=== PATIENT | female | born 1980 | race Two or more races ===

== ENCOUNTER 2018-06-10 18:36 | Emergency (ER) | payer MEDICAID ==
[~2018-06-10] VITALS: Ht 167.6 cm; Wt 86.2 kg
[~2018-06-10 18:36] MED LIST: ALBUAER3 IN; ALPR0.25 PO; BECL0.07 IN; BUSP5TAB51 PO; MON10T PO; NYS5LQ PO; Pantoprazole Sodium Sesquihydr PO
[2018-06-10 18:58] VITALS: BP 147/50
== END 2018-06-10 19:35 | disposition left against medical advice (07) ==
LOC: ER 18:36
DX: R06.02 Shortness of breath (principal); Z53.21 Procedure and treatment not carried out due to patient leaving prior to being seen by health care provider
CPT/HCPCS: 71045

== ENCOUNTER 2020-10-24 19:42 | Emergency (ER) | payer MEDICAID ==
[~2020-10-24] VITALS: Ht 167.6 cm; Wt 90.7 kg
[~2020-10-24 19:42] MED LIST changes: +FAMO-12 PO
[2020-10-24 22:08] LABS: Basophils # (auto) 0 10 ^3/uL (0-0.2); Basophils % (auto) 0.4 % (0.0-2.0); Eosinophils # (auto) 0.5 10 ^3/uL (0-0.8); Eosinophils % (auto) 5.3 % (0.0-7.0); Hematocrit 33.9 % (36.0-46.0); Hemoglobin 11.4 g/dL (12.2-16.2); Lymphocytes # (auto) 1.9 10 ^3/uL (0.4-5.4); Lymphocytes % (auto) 19.4 % (10.0-50.0); Mean Corpuscular Hemoglobin 30.2 pg (28.0-32.0); Mean Corpuscular Hgb Conc. 33.8 g/dL (32.0-36.0); Mean Corpuscular Volume 89.3 fL (80.0-100.0); Monocytes # (auto) 0.6 10 ^3/uL (0-1.3); Monocytes % (auto) 6.5 % (0.0-12.0); Neutrophils # (auto) 6.7 10 ^3/uL (1.6-8.6); Neutrophils % (auto) 68.4 % (37.0-80.0); Nucleated Red Blood Cells % 0.1 %; Platelet Count (auto) 308 10^3/uL (140-450); Red Blood Cells 3.79 10^6/uL (4.0-5.20); Red Cell Distribution Width 14.9 % (11.8-14.3); White Blood Cell 9.9 10^3/uL (4.4-10.8)
[2020-10-24 22:25] LABS: INR 0.92 (0.9-1.15); Partial Thromboplastin Time 28.1 sec (23.0-31.2)
[2020-10-24 22:30] LABS: Albumin 3.1 g/dL (3.4-5.0); Anion Gap 9 (5-15); Aspartate Aminotransferase 21 U/L (15-37); BUN/Creatinine Ratio 16.4; Blood Urea Nitrogen 10 mg/dL (7-18); Calcium 7.9 mg/dL (8.5-10.1); Carbon Dioxide 21 mmol/L (21-32); Chloride 110 mmol/L (98-107); GFR African American 139 mL/min; GFR Non-African American 115 mL/min; Glucose 102 mg/dL (74-106); Potassium 3.7 mmol/L (3.5-5.1); Sodium 140 mmol/L (136-145)
[2020-10-24 22:34] LABS: Alanine Aminotransferase 28 U/L (13-56); Alkaline Phosphatase 86 U/L (45-117); Bilirubin, Total 0.2 mg/dL (0.2-1.0); Total Protein 7.6 g/dL (6.4-8.2)
[2020-10-24 23:41] VITALS: BP 155/102
== END 2020-10-24 23:35 | disposition home or self-care (01) ==
LOC: ER 19:42 → EDBD 19:42 → ER 23:35
DX: F41.1 Generalized anxiety disorder (principal); J45.909 Unspecified asthma, uncomplicated; Z98.890 Other specified postprocedural states
CPT/HCPCS: 36415; 71045; 80053; 83880; 84484; 85025; 85610; 85730; 93005